=== PATIENT | female | born 1975 | race Caucasian/White ===

== ENCOUNTER 2022-02-19 09:59 | Day surgery (SDC) | payer OTHER, SELFPAY ==
[2022-02-19] VITALS (17 sets, daily range): BP systolic 98–130; BP diastolic 63–83; PULSE 61–89; RESP 12–18; TEMP 36.2–36.8; O2SAT 96–100; BMI 36.1
[2022-02-19 10:08] LABS: SARS PCR* Negative SARS-CoV-2 (Negative)
[2022-02-19] MEDS: LACTATED RINGERS 1000 ML 1,000 ML 100 ML IV (10:30)
[2022-02-19 10:45] LABS: Ur HCG Qualitative* Negative (Negative)
[2022-02-19] MEDS: SODIUM CHLORIDE 0.9 % (FLUSH) 10 ML SYRINGE IVF (10:57)
[2022-02-19] MEDS: OXYMETAZOLINE 0.05% NASAL SPRAY 2 SPRAY NOSTRIL-B (11:00)
--- NOTE | 2022-02-19 11:14 | W.ANESCHARGE ---
Anesthesia Charges Start Date/Time Anesthesia Start Date: 02/19/22 Anesthesia Start Time: 11:25 Stop Date/Time Anesthesia Stop Date: 02/19/22 Anesthesia Stop Time: 12:05 Summary Emergency: No
[2022-02-19] MEDS: COCAINE HCL 4 % 4 ML SOLUTION NOSTRIL-B (11:39)
[2022-02-19] MEDS: MUPIROCIN 1 GM PACKET 1 APPLIC TOPICAL (11:45)
[2022-02-19] MEDS: BUPIVACAINE 0.5 %/EPI 1:200K 30 ML INJECTION (11:45)
[2022-02-19] MEDS: AYR SALINE NASAL GEL 1 APPLIC NOSTRIL-B (11:45)
--- NOTE | 2022-02-19 12:04 | W.PM.ENTPROC ---
Procedure Note Date of procedure: 02/19/22 Procedure: Preoperative diagnosis nasal septal deviation, left middle turbinate desi bullosa, inferior turbinate hypertrophy, nasal obstruction, nasal headache. Postoperative diagnosis same Procedure nasal septoplasty, endoscopic partial resection left middle turbinate desi bullosa, submucous partial resection inferior turbinates bilateral. Under general endotracheal anesthesia patient was prepped and draped usual fashion the nose injected and decongested. There is a left premaxillary wing deformity that was infractured with a nasal speculum. The mucosa overlying and anterior to the left area for spur was incised with a 15 blade and elevated over the spur. The Iroquois dissector was used to cut through the cartilage and elevate the mucosa on the opposite side. This per was then cut above and below with an angled scissors and removed. A piece of this was trimmed and returned to the intraseptal space. A stab incision was made in the anterior head of the right inferior turbinate a tunnel created the Joe dissector. The desi bone was outfractured and a conservative anterior submucous resection performed with Nessa forceps. The Coblation Wand was used for hemostasis and to cauterize intramurally along the inferior 10%. This was repeated on the left side in identical fashion. The remainder procedure was done with the available assistance of a 0 degree endoscope. The left middle turbinate desi bullosa was incised along its mid lateral aspect a tunnel was created with a Iroquois dissector the desi bone was infractured. The remainder of the turbinate was then crushed with the Jesús forceps. I also crushed a right middle turbinate. Merocel pack was coated in Bactroban and placed on each side of the nose just beneath the middle turbinates overlying the septal flap. Patient was extubated in the operating room and taken recovery in satisfactory condition. Blood loss less than 25 mL. Complications 0 Surgeon: Junaid Gibbs MD
--- NOTE | 2022-02-19 12:09 | W.ANESCHARGE ---
Anesthesia Charges Start Date/Time Anesthesia Start Date: 02/19/22 Anesthesia Start Time: 11:25 Stop Date/Time Anesthesia Stop Date: 02/19/22 Anesthesia Stop Time: 12:05 Summary Emergency: No
--- NOTE | 2022-02-19 12:37 | W.ANESCHARGE ---
Anesthesia Charges Start Date/Time Anesthesia Start Date: 02/19/22 Anesthesia Start Time: 11:25 Stop Date/Time Anesthesia Stop Date: 02/19/22 Anesthesia Stop Time: 12:05 Summary Emergency: No
[2022-02-19] MEDS: ACETAMINOPHEN 325 MG TABLET PO (13:28)
[2022-02-19] MEDS: cephALEXin 500 MG CAPSULE PO ×2 (14:49→21:07)
[2022-02-19] MEDS: IBUPROFEN 200 MG TABLET PO ×2 (16:57→22:03)
[2022-02-20] MEDS: IBUPROFEN 200 MG TABLET PO ×2 (04:06→08:16)
[2022-02-20 04:09] VITALS: BP 128/86; PULSE 76; RESP 16; O2SAT 97
[2022-02-20] MEDS: cephALEXin 500 MG CAPSULE PO (08:17)
== END 2022-02-20 08:30 | disposition home or self-care (01) ==
LOC: OR 11:03 → OB 12:38
PROVIDERS: Visit Provider Otolaryngology
PROC: (CPT 31231; principal; 2022-02-19 11:15)
DX: J34.2 Deviated nasal septum (principal); J34.3 Hypertrophy of nasal turbinates; R51.9 Headache, unspecified
CPT/HCPCS: 30520; 30140; 31240; 00160; 81025; 87635; A9270; J0330; J1100; J2250; J2405; J2704; J3010; J3490; J7120